=== PATIENT | male | born 1990 | race Caucasian/White ===

== ENCOUNTER 2016-05-15 20:47 | Emergency (ER) | payer SELFPAY ==
--- NOTE | 2016-05-15 21:52 | DIAGNOSTIC IMAGING REPORT ---
PROCEDURE: CT ABDOMEN/PELVIS W/O CONTRAST INDICATION: Right flank pain. TECHNIQUE: Noncontrast axial images with sagittal and coronal reformations. COMPARISON: Compared to abdominal ultrasound 08/07/2012. FINDINGS: ABDOMEN: There are three small right renal calculi (0.5 - 1 mm). Right kidney and ureter are otherwise normal. Left kidney and ureter are normal. Gallbladder, liver, spleen, pancreas, and aorta are normal. Bowel pattern is normal, including appendix. PELVIS: There are multiple calcified phleboliths in the pelvis. There is mild enlargement prostate (4 cm) with central dystrophic calcifications. Pelvic structures are otherwise normal. IMPRESSION: 1. There are three small nonobstructing right renal calculi (0.5 - 1 mm). 2. No evidence of urinary tract obstruction. 3. Otherwise negative CT abdomen and pelvis. 4. Findings discussed with Dr. Kingsley Rosas. All CT scans at this facility use dose modulation, iterative reconstruction, and/or weight-based dosing when appropriate to reduce radiation dose to as low as reasonably achievable.
--- NOTE | 2016-05-15 22:35 | ED NURSING NOTES ---
Clinical Report - Nurses [facility] [address] [place] [address] 05/15/2016 20:48 Patient: THEODORE NETTLES TRIAGE Triage time 20:53 May 15 2016. Acuity: LEVEL 3. Chief Complaint: ABDOMINAL PAIN and NAUSEA. --20:56 Hi Alaniz R.N. 20:53 05/15/16. BP: 143/72. HR: 80. RR: 80. O2 saturation: 98%. Temp: 97.6 F. Pain level now 8/10. --20:56 Hi Alaniz R.N. Weight: 99.7 kg stated. Height/Length: 70 inches Per Patient. BMI: 31.5. --20:55 Hi Alaniz R.N. Medications None. --20:54 Hi Alaniz R.N. Allergies No Known Drug Allergy. --20:54 Hi Alaniz R.N. History Arrived by private vehicle. ( sudden on set nausea and R flank pain starting 1hr). This started just prior to arrival. Treatment PRACTICE NURSE: None. SOCIAL HX: Light tobacco smoker. Occasional alcohol use. History of drug use: marijuana. --20:56 Hi Alaniz R.N. PROBLEMS: Flank Pain. Dysuria. Attention deficit hyperactivity disorder, combined type. Immunizations. Tetanus Status. Nephrolithiasis. --20:54 Hi Alaniz R.N. Interventions ID band on patient. To treatment room. --20:56 Hi Alaniz R.N. NURSING PROGRESS NOTES 21:06 05/15/2016 Site #1 started via IV antecubital space with an 18g angiocath; one attempt. Blood drawn: rainbow set. Labeled in the presence of the patient. Saline lock flushed with saline. --21:06 Hi Alaniz R.N. 21:18 05/15/2016 Started bag #1 1000 mL IV Fluids IV NS (Saline); bolus of 1000 mL wide open then at 1000 mL/hr via site #1. Allergies verified and confirmed 5 rights. IV patency established. IV site checked: no pain, redness, or swelling. IV flushed thoroughly pre- and post-medication administration. Completed per protocol. --21:18 Hi Alaniz R.N. 21:18 05/15/2016 Zofran (Ondansetron HCl) IVP 4 mg given over 2 minute(s) via site #1. Allergies verified and confirmed 5 rights. IV patency established. IV site checked: no pain, redness, or swelling. IV flushed thoroughly pre- and post-medication administration. IVP given by RN. --21:18 Hi Alaniz R.N. 21:19 05/15/2016 Toradol IVP 30 mg given over 2 minute(s) via site #1. Allergies verified and confirmed 5 rights. IV patency established. IV site checked: no pain, redness, or swelling. IV flushed thoroughly pre- and post-medication administration. IVP given by RN. --21: Hi Alaniz R.N. 22:00 05/15/2016 Diazepam (Diazepam) IVP 5 mg given over 2 minute(s) via site #1. Allergies verified, confirmed 5 rights and sedative warning given to the patient. IV patency established. IV site checked: no pain, redness, or swelling. IV flushed thoroughly pre- and post-medication administration. IVP given by RN. --22:00 Hi Alaniz R.N. DISPOSITION / DISCHARGE 22:55 05/15/2016 Site #1 removed upon discharge. Bandage applied. --22:55 Hi Alaniz R.N. No learning barriers present. Discharge instructions provided and reviewed with the patient. Reviewed warnings. Reviewed medication(s) side effects information. Reviewed instructions. Patient verbalized understanding. Written instructions provided in Irish. The patient was discharged by the physician. He was discharged home and accompanied by customer care specialist. He left the Emergency Department ambulatory and via private vehicle. Project Hire driving. --22:55 Hi Alaniz R.N. 22:54 05/15/16. BP: 111/57. HR: 56. RR: 18. O2 saturation: 98%. Temp: 98.8 F. Pain level now 4/10. --22:55 Hi Alaniz R.N. Departure time: 4960. --22:55 Hi Alaniz R.N. Locked/Released at 05/16/2016 5:08 by Hi Alaniz R.N.
--- NOTE | 2016-05-15 22:35 | ED ORDER SUMMARY ---
..... Patient: THEODORE NETTLES OrderSheet [facility] VisitID: [id number] [place] [address] 26y, M Registration Date/Time: 05/15/2016 ORDER SHEET Weight: 99.7 kg (stated) Allergies: No Known Drug Allergy GENERAL ORDERS: CT Abd/Pel wo Cont (Right sided) Urgent (21:06 05/15/2016 Gricelda Richardson) (Ack 21:08 SRedmond) (21:27 MCampbell) CBC w Diff Urgent (21:05/15/2016 Gricelda Richardson) (Ack 21:08 SRedmond) (21:22 SRedmond) CMP Urgent (21:05/15/2016 Gricelda Richardson) (Ack 21:08 SRedmond) (21:22 SRedmond) UA-Culture if indicated Urgent (21:05/15/2016 Gricelda Richardson) (Ack 21:08 SRedmond) MEDICATION ORDERS: IV FLUIDS: IV NS : initial bolus none -, then 1000 mL/hr for X1 (NOW) (21:06 05/15/2016 Gricelda Richardson) (21:18 Greta R.N.) Toradol IV 30 mg (NOW) (21:06 05/15/2016 Gricelda Richardson) (21:19 DBeyjulio cesar R.N.) Zofran IV 4 mg (NOW) (21:06 05/15/2016 Gricelda Richardson) (21:18 Greta R.N.) Diazepam IV 5 mg (HIGH ALERT MEDICATION, NOW) (21:52 05/15/2016 Gricelda Richardson) (22:00 DBeyjulio cesar R.N.) ORDER SHEET NOTES: [Electronically signed by Kingsley Rosas Dr. (22:39 05/15/2016)] [Electronically signed by Hi Alaniz R.N. (05:08 05/16/2016)] [Electronically locked/signed by Hi Alaniz R.N. (05:08 05/16/2016)]
--- NOTE | 2016-05-15 22:35 | ED ORDER SUMMARY ---
..... Patient: THEODORE NETTLES OrderSheet [facility] VisitID: [id number] [place] [address] 26y, M Registration Date/Time: 05/15/2016 ORDER SHEET Weight: 99.7 kg (stated) Allergies: No Known Drug Allergy GENERAL ORDERS: CT Abd/Pel wo Cont (Right sided) Urgent (21:06 05/15/2016 Gricelda Richardson) (Ack 21:08 SRedmond) (21:27 MCampbell) CBC w Diff Urgent (21:05/15/2016 Gricelda Richardson) (Ack 21:08 SRedmond) (21:22 SRedmond) CMP Urgent (21:05/15/2016 Gricelda Richardson) (Ack 21:08 SRedmond) (21:22 SRedmond) UA-Culture if indicated Urgent (21:05/15/2016 Gricelda Richardson) (Ack 21:08 SRedmond) MEDICATION ORDERS: IV FLUIDS: IV NS : initial bolus none -, then 1000 mL/hr for X1 (NOW) (21:06 05/15/2016 Gricelda Richardson) (21:18 Greta R.N.) Toradol IV 30 mg (NOW) (21:06 05/15/2016 Gricelda Richardson) (21:19 DBeyjulio cesar R.N.) Zofran IV 4 mg (NOW) (21:06 05/15/2016 Gricelda Richardson) (21:18 Greta R.N.) Diazepam IV 5 mg (HIGH ALERT MEDICATION, NOW) (21:52 05/15/2016 Gricelda Richardson) (22:00 DBeyjulio cesar R.N.) ORDER SHEET NOTES: [Electronically signed by Kingsley Rosas Dr. (22:39 05/15/2016)] [Electronically signed by Hi Alaniz R.N. (05:08 05/16/2016)] [Electronically locked/signed by Hi Alaniz R.N. (05:08 05/16/2016)]
--- NOTE | 2016-05-15 22:35 | ED NURSING NOTES ---
Clinical Report - Nurses [facility] [address] [place] [address] 05/15/2016 20:48 Patient: THEODORE NETTLES TRIAGE Triage time 20:53 May 15 2016. Acuity: LEVEL 3. Chief Complaint: ABDOMINAL PAIN and NAUSEA. --20:56 Hi Alaniz R.N. 20:53 05/15/16. BP: 143/72. HR: 80. RR: 80. O2 saturation: 98%. Temp: 97.6 F. Pain level now 8/10. --20:56 Hi Alaniz R.N. Weight: 99.7 kg stated. Height/Length: 70 inches Per Patient. BMI: 31.5. --20:55 Hi Alaniz R.N. Medications None. --20:54 Hi Alaniz R.N. Allergies No Known Drug Allergy. --20:54 Hi Alaniz R.N. History Arrived by private vehicle. ( sudden on set nausea and R flank pain starting 1hr). This started just prior to arrival. Treatment RECREATION THERAPIST: None. SOCIAL HX: Light tobacco smoker. Occasional alcohol use. History of drug use: marijuana. --20:56 Hi Alaniz R.N. PROBLEMS: Flank Pain. Dysuria. Attention deficit hyperactivity disorder, combined type. Immunizations. Tetanus Status. Nephrolithiasis. --20:54 Hi Alaniz R.N. Interventions ID band on patient. To treatment room. --20:56 Hi Alaniz R.N. NURSING PROGRESS NOTES 21:06 05/15/2016 Site #1 started via IV antecubital space with an 18g angiocath; one attempt. Blood drawn: rainbow set. Labeled in the presence of the patient. Saline lock flushed with saline. --21:06 Hi Alaniz R.N. 21:18 05/15/2016 Started bag #1 1000 mL IV Fluids IV NS (Saline); bolus of 1000 mL wide open then at 1000 mL/hr via site #1. Allergies verified and confirmed 5 rights. IV patency established. IV site checked: no pain, redness, or swelling. IV flushed thoroughly pre- and post-medication administration. Completed per protocol. --21:18 Hi Alaniz R.N. 21:18 05/15/2016 Zofran (Ondansetron HCl) IVP 4 mg given over 2 minute(s) via site #1. Allergies verified and confirmed 5 rights. IV patency established. IV site checked: no pain, redness, or swelling. IV flushed thoroughly pre- and post-medication administration. IVP given by RN. --21:18 Hi Alaniz R.N. 21:19 05/15/2016 Toradol IVP 30 mg given over 2 minute(s) via site #1. Allergies verified and confirmed 5 rights. IV patency established. IV site checked: no pain, redness, or swelling. IV flushed thoroughly pre- and post-medication administration. IVP given by RN. --21: Hi Alaniz R.N. 22:00 05/15/2016 Diazepam (Diazepam) IVP 5 mg given over 2 minute(s) via site #1. Allergies verified, confirmed 5 rights and sedative warning given to the patient. IV patency established. IV site checked: no pain, redness, or swelling. IV flushed thoroughly pre- and post-medication administration. IVP given by RN. --22:00 Hi Alaniz R.N. DISPOSITION / DISCHARGE 22:55 05/15/2016 Site #1 removed upon discharge. Bandage applied. --22:55 Hi Alaniz R.N. No learning barriers present. Discharge instructions provided and reviewed with the patient. Reviewed warnings. Reviewed medication(s) side effects information. Reviewed instructions. Patient verbalized understanding. Written instructions provided in Irish. The patient was discharged by the physician. He was discharged home and accompanied by steel rigger. He left the Emergency Department ambulatory and via private vehicle. Environmental Construction Engineer driving. --22:55 Hi Alaniz R.N. 22:54 05/15/16. BP: 111/57. HR: 56. RR: 18. O2 saturation: 98%. Temp: 98.8 F. Pain level now 4/10. --22:55 Hi Alaniz R.N. Departure time: 5400. --22:55 Hi Alaniz R.N. Locked/Released at 05/16/2016 5:08 by Hi Alaniz R.N.
--- NOTE | 2016-05-15 22:35 | ED CLINICAL REPORT ---
Clinical Report - Physicians/Mid Levels [facility] [address] [place] [address] 05/15/2016 20:48 Patient: THEODORE NETTLES Time Seen: 21:02; initial patient contact. Arrived- By private vehicle. Historian- patient. HISTORY OF PRESENT ILLNESS Chief Complaint: FLANK PAIN. It is described as sharp, stabbing and cramping and it is described as located in the right flank and the right pelvis and radiating to the groin. At its maximum, severity described as moderate. When seen in the E.D., severity described as moderate. Modifying factors. Not worsened by anything. Not relieved by anything. This started today and is still present. It was abrupt in onset. The patient has had nausea. No vomiting or diarrhea. Similar symptoms previously: Several times. Recent medical care: Not recently seen/assessed. REVIEW OF SYSTEMS No constipation, difficulty with urination, pain with urination, urinary frequency or fever. No chills. All systems otherwise negative, except as recorded above. PAST HISTORY Flank Pain. Dysuria. Attention deficit hyperactivity disorder, combined type. Nephrolithiasis. Medications: None. Allergies: No Known Drug Allergy. SOCIAL HISTORY Current every day smoker. Occasional alcohol use. History of drug use: marijuana. ADDITIONAL NOTES The nursing notes have been reviewed with agreement regarding the chief complaint, PMH and patient medications and allergies. PHYSICAL EXAM Vital Signs: 05/15/2016 20:53 BP: 143/72. HR: 80. RR: 80. O2 saturation: 98%. Temp: 97.6 F. Have been reviewed and do not appear to be correct. Appearance: Alert. Oriented X3. Appears to be in pain. Eyes: No scleral icterus. ENT: Dry mucous membranes present. CVS: Normal heart rate and rhythm. Heart sounds normal. Respiratory: No respiratory distress. Breath sounds normal. Abdomen: Soft. Moderate tenderness in the right lower quadrant with guarding present. No rebound tenderness or obturator or psoas sign present. Bowel sounds normal. No organomegaly. No mass. Back: Moderate CVA tenderness on the right. Skin: Normal skin color. No rash. Extremities: No lower extremity edema. Neuro: Oriented X 3. LABS, X-RAYS, AND EKG Abdominal CT: 1. There are three small nonobstructing right renal calculi (0.5 - 1 mm). 2. No evidence of urinary tract obstruction. 3. Otherwise negative CT abdomen and pelvis. Study type: renal stone evaluation. Abdominal CT performed without contrast. The study was independently viewed by me, interpreted by the radiologist and discussed with the radiologist. Interpretation time: 21:54. Laboratory Tests: UA-Culture if indicated: (IZZY: 05/15/2016 21:14) ( MsgRcvd 05/15/2016 21:42) Final results Test Result Flag Units (Reference) URINE COLOR YELLOW URINE APPEARANCE CLEAR URINE GLUCOSE NEGATIVE (NEGATIVE) URINE BILIRUBIN NEGATIVE (NEGATIVE) URINE KETONE NEGATIVE (NEGATIVE) URINE SPECIFIC GRAVITY 1.020 (1.010-1.030) URINE PH 7.0 (5.0-8.0) URINE PROTEIN NEGATIVE (NEGATIVE) URINE UROBILINOGEN 0.2 EU/dL (0.2-1.0) URINE NITRITE NEGATIVE (NEGATIVE) URINE BLOOD NEGATIVE (NEGATIVE) URINE LEUK ESTERASE NEGATIVE (NEGATIVE) URINE RBC 0-1 rbc/hpf (0-1) URINE WBC RARE wbc/hpf (0-1) URINE EPITHELIAL CELLS RARE EPI/hpf (0-5) URINE BACTERIA NONE SEEN (NONE SEEN) URINE COMMENT CULT NOT INDICATED URINE CULTURES ARE SET-UP BASED ON THE FOLLOWING CRITERIA:POSITIVE NITRITEPOSITIVE LEUKOCYTE ESTERASEGREATER THAN 10 WHITE BLOOD CELLSMODERATE (2+) OR GREATER BACTERIA CBC w Diff: (IZZY: 05/15/2016 21:00) ( [facility] 21:17) Final results Test Result Flag Units (Reference) WHITE BLOOD COUNT 9.0 K/uL (4.5-11.5) RED BLOOD COUNT 4.54 M/uL (4.50-5.90) HEMOGLOBIN 14.1 gm/dL (13.5-17.5) HEMATOCRIT 41.9 % (41.0-53.0) MEAN CELL VOLUME 92 fL (80-100) MEAN CORPUSCULAR HGB 31 pg (26-34) MEAN CORPUSCULAR HGB CONC 34 g/dL (31-37) RED CELL DISTRIBUTION WIDTH 13.3 % (11.6-14.8) PLATELET COUNT 235 K/uL (150-400) NEUTROPHIL % 53.1 % (50-75) LYMPH % 36.6 % (25-40) MONO % 6.5 % (3-14) EOSINOPHIL % 3.3 % (0-4) BASOPHIL % 0.5 % (0-2) CMP: (IZZY: 05/15/2016 21:00) ( MsgRcvd 05/15/2016 21:30) Final results Test Result Flag Units (Reference) GLUCOSE 123 H mg/dL (70-110) BUN 14 mg/dL (7-18) CREATININE 1.1 mg/dL (0.6-1.3) Estimated GFR >60 mL/min Estimated GFR- >60 mL/min Note: Persistent reduction over 3 months in eGFR<60 mL/min/1.73 m2 defines CKD. Patients with eGFR values>=60 mL/min/1.73 m2 may also have CKD if evidence ofpersistent proteinuria. Additional information may be foundat www.[email or web address].org. SODIUM 140 mmol/L (136-145) POTASSIUM 4.1 mmol/L (3.5-5.1) CHLORIDE 103 mmol/L (98-107) CARBON DIOXIDE 27 mmol/L (21-32) CALCIUM 8.9 mg/dL (8.5-10.1) TOTAL PROTEIN 7.7 g/dL (6.4-8.2) ALBUMIN 4.1 g/dL (3.3-5.0) BILIRUBIN, TOTAL 0.4 mg/dL (0.0-1.0) ALKALINE PHOSPHATASE 77 U/L (46-116) AST (SGOT) 22 U/L (15-37) ALT (SGPT) 30 U/L (12-78) . PROGRESS AND PROCEDURES Course of Care: Toradol 30 mg IVP given. Diazepam 5 mg IVP given. Physical exam findings are improved. Symptoms much better. Disposition: Discharged home in good and improved condition. Condition: good. CLINICAL IMPRESSION Muscle strain of the low back. INSTRUCTIONS Prescription Medications: Baclofen 20 mg: take 1 orally every 8 hours. Dispense twenty (20). No refills. Diclofenac 50 mg tablets: take 1 tablet orally every 8 hours as needed for pain or stiffness. Dispense thirty (30). No refill. Follow-up: Follow up with your doctor in about two days. Call for an appointment. Screening today revealed the patient's blood pressure to be in the hypertensive range. The patient should follow up with a primary care provider for blood pressure management. (Electronically signed by Kingsley Rosas Dr. 05/15/2016 22:39)
--- NOTE | 2016-05-16 05:09 | ED MED RECONCILIATION SUMMARY ---
Patient: THEODORE NETTLES Medication Reconciliation Report [facility] VisitID: [id number] [place] [address] 26y, M Registration Date/Time: 05/15/2016 Weight: 99.7 kg Height/Length: 70 in. BMI: 31.5 ALLERGIES: No Known Drug Allergy The patient's Home Medications are listed below: NONE. The source(s) of the original Home Medication information: Not obtained. The following Medications were given to the patient in the Emergency Department: IV NS IV Fluids bolus 1000 mL wide open, then 1000 mL/hr, administered: 05/15/2016 9:18:00 PM Zofran [IVP] IVP 4 mg, administered: 05/15/2016 9:18:00 PM Toradol [IVP] IVP 30 mg, administered: 05/15/2016 9:19:00 PM Diazepam [IVP] IVP 5 mg, administered: 05/15/2016 10:00:00 PM The following Medications were prescribed to the patient: Baclofen 20 mg: take 1 orally every 8 hours. Dispense twenty (20). No refills. -- Kingsley Rosas Dr. Diclofenac 50 mg tablets: take 1 tablet orally every 8 hours as needed for pain or stiffness. Dispense thirty (30). No refill. -- Kingsley Rosas Dr.
--- NOTE | 2016-05-16 05:09 | ED MED RECONCILIATION SUMMARY ---
Patient: THEODORE NETTLES Medication Reconciliation Report [facility] VisitID: [id number] [place] [address] 26y, M Registration Date/Time: 05/15/2016 Weight: 99.7 kg Height/Length: 70 in. BMI: 31.5 ALLERGIES: No Known Drug Allergy The patient's Home Medications are listed below: NONE. The source(s) of the original Home Medication information: Not obtained. The following Medications were given to the patient in the Emergency Department: IV NS IV Fluids bolus 1000 mL wide open, then 1000 mL/hr, administered: 05/15/2016 9:18:00 PM Zofran [IVP] IVP 4 mg, administered: 05/15/2016 9:18:00 PM Toradol [IVP] IVP 30 mg, administered: 05/15/2016 9:19:00 PM Diazepam [IVP] IVP 5 mg, administered: 05/15/2016 10:00:00 PM The following Medications were prescribed to the patient: Baclofen 20 mg: take 1 orally every 8 hours. Dispense twenty (20). No refills. -- Kingsley Rosas Dr. Diclofenac 50 mg tablets: take 1 tablet orally every 8 hours as needed for pain or stiffness. Dispense thirty (30). No refill. -- Kingsley Rosas Dr.
--- NOTE | 2016-05-16 05:09 | ED MAR SUMMARY ---
..... Medication Administration Record [facility] [address] [place] [address] Patient: THEODORE NETTLES Visit ID: [id number] 26y, M Weight: 99.7 kg Height/Length: 70 in BMI: 31.5 ALLERGIES: No Known Drug Allergy Start 21:18 05/15/2016 Hi Alaniz R.N. Medication Administered: IV NS (SALINE), Dose: IV Fluids, Rate: 1000 mL/hr, Bolus: 1000 mL wide open, Dispensed: 1000 mL bag, Site: #1 AC. Medication Ordered: IV NS : initial bolus none -, then 1000 mL/hr for X1 (NOW). Given :05/15/2016 Hi Alaniz R.N. Medication Administered: ZOFRAN [IVP] (ONDANSETRON HCL), Dose: 4 mg IVP over 2 minute(s), Site: #1 AC. Medication Ordered: Zofran IV 4 mg (NOW). Given 21:05/15/2016 Hi Alaniz R.N. Medication Administered: TORADOL [IVP], Dose: 30 mg IVP over 2 minute(s), Site: #1 AC. Medication Ordered: Toradol IV 30 mg (NOW). Given 22:00 05/15/2016 Hi Alaniz R.N. Medication Administered: DIAZEPAM [IVP] (DIAZEPAM), Dose: 5 mg IVP over 2 minute(s), Site: #1 AC. Medication Ordered: Diazepam IV 5 mg (HIGH ALERT MEDICATION, NOW).
--- NOTE | 2016-05-16 05:09 | ED DISCHARGE INSTRUCTIONS ---
Patient: THEODORE NETTLES General Instructions [facility] VisitID: [id number] [place] [address] 26y, M Registration Date/Time: 05/15/2016 Muscle strain of the low back. INSTRUCTIONS Prescription Medications: Baclofen 20 mg: take 1 orally every 8 hours. Dispense twenty (20). No refills. Diclofenac 50 mg tablets: take 1 tablet orally every 8 hours as needed for pain or stiffness. Dispense thirty (30). No refill. Follow-up: Follow up with your doctor in about two days. Call for an appointment. Screening today revealed the patient's blood pressure to be in the hypertensive range. The patient should follow up with a primary care provider for blood pressure management. ADDITIONAL INFORMATION Back Pain [Acute Or Chronic] Back pain is usually caused by an injury to the muscles or ligaments of the spine. Sometimes the disks that separate each bone in the spine may bulge and cause pain by pressing on a nearby nerve. Back pain may also appear after a sudden twisting/bending force (such as in a car accident), after a simple awkward movement, or lifting something heavy with poor body positioning. In either case, muscle spasm is often present and adds to the pain. Acute back pain usually gets better in one to two weeks. Back pain related to disk disease, arthritis in the spinal joints or spinal stenosis (narrowing of the spinal canal) can become chronic and last for months or years. Unless you had a physical injury (for example, a car accident or fall) X-rays are usually not ordered for the initial evaluation of back pain. If pain continues and does not respond to medical treatment, x-rays and other tests may be performed at a later time. Home Care: You may need to stay in bed the first few days. But, as soon as possible, begin sitting or walking to avoid problems with prolonged bed rest (muscle weakness, worsening back stiffness and pain, blood clots in the legs). When in bed, try to find a position of comfort. A firm mattress is best. Try lying flat on your back with pillows under your knees. You can also try lying on your side with your knees bent up towards your chest and a pillow between your knees. Avoid prolonged sitting. This puts more stress on the lower back than standing or walking. During the first two days after injury, apply an ICE PACK to the painful area for 20 minutes every 2-4 hours. This will reduce swelling and pain. HEAT (hot shower, hot bath or heating pad) works well for muscle spasm. You can start with ice, then switch to heat after two days. Some patients feel best alternating ice and heat treatments. Use the one method that feels the best to you. You may use acetaminophen (Tylenol) or ibuprofen (Motrin, Advil) to control pain, unless another pain medicine was prescribed. [NOTE: If you have chronic liver or kidney disease or ever had a stomach ulcer or GI bleeding, talk with your doctor before using these medicines.] Be aware of safe lifting methods and do not lift anything over 15 pounds until all the pain is gone. Follow Up with your doctor or this facility if your symptoms do not start to improve after one week. Physical therapy may be needed. [NOTE: If X-rays were taken, they will be reviewed by a radiologist. You will be notified of any new findings that may affect your care.] Get Prompt Medical Attention if any of the following occur: Pain becomes worse or spreads to your legs Weakness or numbness in one or both legs Loss of bowel or bladder control Numbness in the groin or genital area You have been given the following additional information: Back Pain (Acute Or Chronic) (Electronically signed by Kingsley Rosas Dr. 05/15/2016 22:39)
--- NOTE | 2016-05-16 05:09 | ED MAR SUMMARY ---
..... Medication Administration Record [facility] [address] [place] [address] Patient: THEODORE NETTLES Visit ID: [id number], M Weight: 99.7 kg Height/Length: 70 in BMI: 31.5 ALLERGIES: No Known Drug Allergy Start 21:18 05/15/2016 Hi Alaniz R.N. Medication Administered: IV NS (SALINE), Dose: IV Fluids, Rate: 1000 mL/hr, Bolus: 1000 mL wide open, Dispensed: 1000 mL bag, Site: #1 AC. Medication Ordered: IV NS : initial bolus none -, then 1000 mL/hr for X1 (NOW). Given :05/15/2016 Hi Alaniz R.N. Medication Administered: ZOFRAN [IVP] (ONDANSETRON HCL), Dose: 4 mg IVP over 2 minute(s), Site: #1 AC. Medication Ordered: Zofran IV 4 mg (NOW). Given 21:05/15/2016 Hi Alaniz R.N. Medication Administered: TORADOL [IVP], Dose: 30 mg IVP over 2 minute(s), Site: #1 AC. Medication Ordered: Toradol IV 30 mg (NOW). Given 22:00 05/15/2016 Hi Alaniz R.N. Medication Administered: DIAZEPAM [IVP] (DIAZEPAM), Dose: 5 mg IVP over 2 minute(s), Site: #1 AC. Medication Ordered: Diazepam IV 5 mg (HIGH ALERT MEDICATION, NOW).
== END 2016-05-15 22:50 | disposition home or self-care (01) ==
LOC: ED SRH 20:47
DX: S39.012A Strain of muscle, fascia and tendon of lower back, initial encounter (principal); X58.XXXA Exposure to other specified factors, initial encounter; Y93.9 Activity, unspecified; Y99.9 Unspecified external cause status; Y92.9 Unspecified place or not applicable; R10.31 Right lower quadrant pain; F17.200 Nicotine dependence, unspecified, uncomplicated
CPT/HCPCS: 90004; 90100; 95059